=== PATIENT | male | born 1990 | race Caucasian/White ===

== ENCOUNTER 2016-06-01 23:52 | Emergency (ER) | payer SELFPAY ==
[~2016-06-01] VITALS: Ht 188 cm; Wt 134.2 kg
[~2016-06-01 23:52] MED LIST: CEPH-443 PO
[2016-06-02 00:14] VITALS: Ht 188 cm; Wt 134.2 kg
--- NOTE | 2016-06-02 00:39 | ERD ---
ER Documentation Chief Complaint Date/Time DATE: 06/02/16 TIME: 00:38 Chief Complaint FEVER, BODY PAIN, BLURRED VISION ALL DAY TODAY HPI This is a 25 mm because of fever, monitoring for the past 2 days. No nausea no vomiting no chills. No other current complaints. Cough is mildly productive. No other current problems. ROS All systems reviewed and are negative except as per history of present illness. Medications Home Meds Active Scripts Cephalexin* (Keflex*) 500 Mg Capsule, 500 MG PO QID for 5 Days, CAP Prov:DIONICIOHELENE LEMUS 11/20/14 Allergies Allergies: Coded Allergies: No Known Allergy (Unverified , 06/02/16) PMhx/Soc Medical and Surgical Hx: pt denies Medical Hx, pt denies Surgical Hx Hx Alcohol Use: No Hx Substance Use: No Hx Tobacco Use: Yes Smoking Status: Current every day smoker Physical Exam Vitals Vital Signs Date Time Temp Pulse Resp B/P Pulse Ox O2 Delivery O2 Flow Rate FiO2 06/02/16 00:14 100.6 79 20 134/74 97 Physical Exam Const: [] Head: Atraumatic Eyes: Normal Conjunctiva ENT: Normal External Ears, Nose and Mouth. Neck: Full range of motion..~ No meningismus. Resp: Clear to auscultation bilaterally Cardio: Regular rate and rhythm, no murmurs Abd: Soft, non tender, non distended. Normal bowel sounds Skin: No petechiae or rashes Back: No midline or flank tenderness Ext: No cyanosis, or edema Neur: Awake and alert Psych: Normal Mood and Affect Procedures/MDM Chest X-ray 1V Interpreted by me: Soft Tissue: No acute abnormalities Bones: No acute abnormalities Mediastinum/Cardiac Silhouette/Lungs: Increased interstitial markings. Peribronchial cuffing. Impression: Viral bronchitis Departure Diagnosis: Primary Impression: Viral bronchitis Condition: Stable HELENE ERICKSONKristen Jun 02, 2016 00:39
[2016-06-02] MEDS ORDERED: IBUP800T25 PO (00:40)
[2016-06-02] MEDS ORDERED: PRED20TA PO (00:40)
[2016-06-02] MEDS ORDERED: ALBU18HF INHALATION (00:40)
[2016-06-02 00:46] VITALS: PULSE 78; RESP 17; TEMP 99.4
--- NOTE | 2016-06-02 00:57 | RADRPT ---
PROCEDURE: XR Chest. CLINICAL INDICATION: Cough. TECHNIQUE: Portable AP view of the chest was obtained. COMPARISON: None. FINDINGS: The cardiomediastinal silhouette is within normal limits. Infiltrate within the left perihilar leticia on in the left upper lobe is consistent with pneumonia. The right lung is clear. There is no evide nce for pleural effusion, pneumothorax or pulmonary vascular congestion. The osseous structures are intact with no evidence for acute abnormality. RPTAT:HJJR IMPRESSION: Left perihilar and upper lobe infiltrate consistent with pneumonia. Follow-up examination after medi nanci therapy is recommended. Physician Elisa Date Time Electronically viewed and signed by Reddy Middleton Physician on 06/02/2016 00:57 JR/
== END 2016-06-02 00:46 | disposition home or self-care (01) ==
LOC: E/R 23:52
DX: J20.8 Acute bronchitis due to other specified organisms (principal); F17.210 Nicotine dependence, cigarettes, uncomplicated
CPT/HCPCS: 71010

== ENCOUNTER 2016-11-25 20:57 | Emergency (ER) | payer MEDICAID ==
[~2016-11-25] VITALS: Ht 188 cm; Wt 66.0 kg
[~2016-11-25 20:57] MED LIST changes: +ALBU18HF INHALATION; +IBUP800T25 PO; +PRED20TA PO
[2016-11-25 21:07] VITALS: Ht 188 cm; Wt 66.0 kg
[2016-11-25] MEDS ORDERED: NAPR-260 PO (21:47)
[2016-11-25] MEDS ORDERED: HYDR-906 PO (21:48)
--- NOTE | 2016-11-25 21:57 | ERD ---
ER Documentation Chief Complaint Date/Time DATE: 11/25/16 TIME: 21:52 Chief Complaint BIB SELF, CC: TOOTH ACHE X 2 WEEKS, SEEN PRIOR TO THIS VISIT HPI This is a 26-year-old male presents to the emergency department today complaining of dental pain for the past couple of weeks. Patient was seen here previously once and states he is taking his antibiotics. States he has not been able to yet to get to a dentist due to finances. States he has been taking a lot of Motrin. Denies any fevers or chills. ROS All systems reviewed and are negative except as per history of present illness. Medications Home Meds Active Scripts Hydrocodone/Acetaminophen ([place] 5-325 Tablet) 1 Each Tablet, 1 TAB PO Q6H Y for PAIN, #12 TAB Prov:PALMIRA DALTON PA-C 11/25/16 Naproxen* (Naprosyn*) 500 Mg Tablet, 500 MG PO BID Y for PAIN AND/OR INFLAMMATION, #30 TAB Prov:PALMIRA DALTON PA-C 11/25/16 Albuterol Sulfate* (Ventolin HFA*) 18 Gm Hfa.aer.ad, 2 PUFF INHALATION Q4H, #1 INHALER Prov:HELENE ERICKSON 06/02/16 Prednisone* (Prednisone*) 20 Mg Tab, 40 MG PO DAILY for 4 Days, TAB Prov:HELENE ERICKSON 06/02/16 Ibuprofen* (Motrin*) 800 Mg Tab, 800 MG PO Q6, #30 TAB Prov:HELENE ERICKSON 06/02/16 Cephalexin* (Keflex*) 500 Mg Capsule, 500 MG PO QID for 5 Days, CAP Prov:HELENE ERICKSON 11/20/14 Allergies Allergies: Coded Allergies: No Known Allergy (Unverified , 06/02/16) PMhx/Soc Medical and Surgical Hx: pt denies Medical Hx, pt denies Surgical Hx History of Surgery: No Anesthesia Reaction: No Hx Neurological Disorder: No Hx Respiratory Disorders: No Hx Cardiac Disorders: No Hx Psychiatric Problems: No Hx Miscellaneous Medical Probl: No Hx Alcohol Use: Yes (SOCIAL) Hx Substance Use: No Hx Tobacco Use: No Smoking Status: Never smoker Physical Exam Vitals Vital Signs Date Time Temp Pulse Resp B/P Pulse Ox O2 Delivery O2 Flow Rate FiO2 11/25/16 21:07 98.2 82 18 112/61 100 Physical Exam Const: NAD Head: Atraumatic Eyes: Normal Conjunctiva ENT: Normal External Ears, Nose. Mouth with evidence of multiple areas of dental fracture and decay upper and lower molars. No evidence of abscess. Neck: Full range of motion..~ No meningismus. Resp: Clear to auscultation bilaterally Cardio: Regular rate and rhythm, no murmurs Skin: No petechiae or rashes Neur: Awake and alert Psych: Normal Mood and Affect Results 24 hrs Current Medications Medications (Trade) Dose Ordered Sig/Olga Route PRN Reason Start Time Stop Time Status Last Admin Dose Admin Acetaminophen/ Hydrocodone Bitart ([place] (5/325)) 1 tab ONCE ONCE PO 11/25/16 22:00 11/25/16 22:01 Procedures/MDM This is a 26-year-old male who presents to the emergency department today complaining of multiple areas of dental pain for the past couple of weeks. 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 Upon review of patient's medical records patient was seen here on November 13, 2016 and given medication at that time. Patient indicated he is still taking the clindamycin as prescribed. Patient indicated he has been unable to see a dentist due to finances. Patient symptoms at this time is consistent with dental pain. See evidence of abscess. Patient is currently taking clindamycin. He is afebrile and otherwise well-appearing. Patient was given one [place] here in the emergency department. He is given a short course for home as well as Naprosyn. Patient was also given referral information for [facility] dentist. I also explained to patient that [facility] and [facility] both have dental schools and he is encouraged to inquire about what services they provide to the local community. Patient understood. At this time the patient is stable for discharge and outpatient management. Patient should follow up with their PCP in the next 1-2 days. They may return to the emergency department sooner for any persistent or worsening of symptoms. Patient understood and agreed with the plan. Departure Diagnosis: Primary Impression: Pain, dental Condition: Fair Patient Instructions: Dental Pain Referrals: [facility] dental school [facility] dental school [facility] ([facility] walk in clinic) Additional Instructions: Call your primary care doctor TOMORROW for an appointment during the next 1-2 days.See the doctor sooner or return here if your condition worsens before your appointment time. Make an appointment at [facility] dentist or follow up with [facility] or [facility] in regards to their dental programs and services Take [place] for severe pain otherwise take Tylenol or Naprosyn or Motrin Continue taking your antibiotics as prescribed PALMIRA DALTON PA-C Nov 25, 2016 21:57
[2016-11-25] MEDS ORDERED: HYDROCODONE/APAP (5/325) TAB PO ONE (22:00)
[2016-11-25 22:20] VITALS: BP 117/71; PULSE 62; RESP 17; TEMP 97.6
== END 2016-11-25 22:20 | disposition home or self-care (01) ==
LOC: FTE 20:57
DX: K08.89 Other specified disorders of teeth and supporting structures (principal)
CPT/HCPCS: Z7502; Z7610; 99283

== ENCOUNTER 2017-04-07 16:34 | Emergency (ER) | END 2017-04-07 20:20 | disposition home or self-care (01) ==